=== PATIENT | male | born 1970 | race Caucasian/White ===

== ENCOUNTER → 2018-10-25 | Outpatient (CLI) | payer OTHER | LOC: BMCIMAGING 14:28 | PROVIDERS: ATTEND Physician Assistant | DX: M25.811 Other specified joint disorders, right shoulder (principal); M25.711 Osteophyte, right shoulder ==

== ENCOUNTER → 2018-10-31 | Outpatient (CLI) | payer OTHER | LOC: FIMAGING 19:17 | PROVIDERS: ATTEND Physician Assistant | DX: M21.921 Unspecified acquired deformity of right upper arm (principal); M24.111 Other articular cartilage disorders, right shoulder; M75.31 Calcific tendinitis of right shoulder; Z87.81 Personal history of (healed) traumatic fracture ==